=== PATIENT | male | born 1945 | race Hispanic/Latino ===

== ENCOUNTER 2019-03-08 16:56 | Inpatient (IN) | payer OTHER ==
[~2019-03-08] VITALS: Ht 180.3 cm; Wt 85.3 kg
[2019-03-08 17:45] LABS: EOSINOPHILS % (AUTO) 3.7 % (0.0-8.0); HEMATOCRIT 47.7 % (42-54); MEAN CORPUSCULAR HEMOGLOBIN 32.9 pg (27.0-33.0); MEAN CORPUSCULAR HGB CONC 34.5 g/dL (32.0-36.0); MEAN CORPUSCULAR VOLUME 95.5 fL (79-99); MONOCYTES % (AUTO) 6.8 % (3.0-13.0); NEUTROPHILS % (AUTO) 58.5 % (40.0-77.0); PLATELET COUNT (AUTO) 238 K/uL (130-400); RED CELL DISTRIBUTION WIDTH 13.2 % (11.0-15.5); WHITE BLOOD COUNT (AUTO) 7.9 K/uL (4.8-10.8)
[2019-03-08 17:57] LABS: CREATININE 1.1 mg/dL (0.5-1.5); POTASSIUM 4.5 mmol/L (3.5-5.1)
[2019-03-08] MEDS ORDERED: IOHEXOL-350 75 ML VIAL IV ONE (18:02)
[2019-03-08] MEDS ORDERED: IOHEXOL-350 50ML VIAL IV ONE ×2 (18:37→18:49)
[2019-03-08 19:44] LABS: APPEARANCE,URINE Clear (CLEAR); BILIRUBIN,URINE Negative (NEGATIVE); COLOR,URINE Yellow (YELLOW); GLUCOSE, URINE (UA) Negative (NEGATIVE); KETONES,URINE Trace mg/dL (NEGATIVE); LEUKOCYTE ESTERASE ,URINE Negative (NEGATIVE); NITRATE,URINE Negative (NEGATIVE); OCCULT BLOOD,URINE Negative (NEGATIVE); PROTEIN,URINE Negative (NEGATIVE)
[2019-03-08] MEDS ORDERED: ONDANSETRON HCL 4 MG/2 ML VIAL IV PRN (22:30)
[2019-03-08] MEDS ORDERED: HYDRALAZINE HCL 20 MG/ML VIAL IV PRN (22:30)
[2019-03-08] MEDS ORDERED: ACETAMINOPHEN 325 MG TAB PO PRN ×2 (22:30)
[2019-03-08 22:45] VITALS: BP 161/68
[2019-03-09] VITALS (15 sets, daily range): BP systolic 115–152; BP diastolic 53–80
[2019-03-09] MEDS: INSULIN HUMULIN R 100 UNIT/ML 3ML SQ SCH ×4 (07:30→20:56)
--- NOTE | 2019-03-09 08:30 | NUR ---
Dr Osullivan at bedside, requesting [facility] head [facility], pending to bring CD of CT heat.
[2019-03-09] MEDS: FAMOTIDINE/PF 20 MG/2 ML VIAL IV SCH ×2 (09:58→20:56)
--- NOTE | 2019-03-09 10:00 | NUR ---
Dr. Rascon at bedside, discussed plan with pt. to start on anticonvulsant therapy, high blood pressure control and possible Cerebral angio if recommended by dr. goodman.
--- NOTE | 2019-03-09 11:55 | NUR ---
Report given to BETTE Carcamo from ICU. Transferred pt, in no distress, aaox3.
[2019-03-09] MEDS: LEVETIRACETAM 500 MG TABLET PO SCH ×2 (14:26→20:56)
[2019-03-09] MEDS ORDERED: AEC81 PO (15:57)
[2019-03-09] MEDS ORDERED: LISI40TA4 PO (15:57)
[2019-03-09] MEDS ORDERED: CARB15DR OU (16:00)
--- NOTE | 2019-03-09 19:30 | NUR ---
Patient Refusal of CT with contrast in am Plan of care was discussed with patients and CT of head with and without contrast. Informed of need of CT and need of consent for use of contrast. Patient refused to get CT of head with contrast do to previous infiltration and arm swelling from previous CT. Discussed need of CT and informed patient that a new iv would be started and made sure IV was working properly before exam, patient continued to refuse.
--- NOTE | 2019-03-09 20:00 | NUR ---
Dr. Osullivan Paged Dr. Osullivan notified of patient refusal of CT with contrast and reason why patient refused. Orders received if unable to do CT with contrast not to take patient for CT without contrast and put on hold if unable to do both.
[2019-03-09] MEDS ORDERED: LEVETIRACETAM 500 MG TABLET PO SCH (21:00)
[2019-03-10] VITALS (12 sets, daily range): BP systolic 122–158; BP diastolic 63–105
[2019-03-10 04:05] LABS: HEMATOCRIT 44.1 % (42-54); HEMOGLOBIN A1C 7.2 % (4.0-6.0); MEAN CORPUSCULAR HEMOGLOBIN 32.6 pg (27.0-33.0); MEAN CORPUSCULAR HGB CONC 34.1 g/dL (32.0-36.0); MEAN CORPUSCULAR VOLUME 95.5 fL (79-99); NUCLEATED RED BLOOD CELLS 0.1 % (0.0-0.19); PLATELET COUNT (AUTO) 240 K/uL (130-400); RED BLOOD CELL COUNT(AUTO) 4.62 MIL/uL (4.50-6.20); RED CELL DISTRIBUTION WIDTH 13.1 % (11.0-15.5); WHITE BLOOD COUNT (AUTO) 9.2 K/uL (4.8-10.8)
[2019-03-10 04:19] LABS: POTASSIUM 4.3 mmol/L (3.5-5.1)
--- NOTE | 2019-03-10 04:30 | NUR ---
Educated patient on need of CT Patient was educated on need of CT, importance, and doctors orders. Patient continued to refuse.
[2019-03-10] MEDS: INSULIN HUMULIN R 100 UNIT/ML 3ML SQ SCH ×2 (06:34→11:30)
--- NOTE | 2019-03-10 07:50 | NUR ---
DR. GAUTHIER HERE AND ASSESSED PT AND UPDATE WAS GIVEN. PT HAD REFUSED TO REPEAT CT SCAN AND PT VERIFIED HIS REFUSAL TO DR. GAUTHIER AND ORDERS NOTED.
--- NOTE | 2019-03-10 08:45 | NUR ---
DR. ANGELO HERE AND ASSESSED PT AND WILL TRANSFER PT TO MED SURG FLOOR. PT WAS ADVISED OF NEURO DOCTOR BRIAN TO ASSESS PT AND DECIDE IF PATIENT CAN GO HOME.
[2019-03-10] MEDS ORDERED: AMLODIPINE BESYLATE 2.5 MG TAB PO SCH (09:00)
[2019-03-10] MEDS ORDERED: LINAGLIPTIN 5 MG TABLET PO SCH (09:00)
[2019-03-10] MEDS: LEVETIRACETAM 500 MG TABLET PO SCH (09:45)
[2019-03-10] MEDS: FAMOTIDINE/PF 20 MG/2 ML VIAL IV SCH (09:45)
--- NOTE | 2019-03-10 09:55 | NUR ---
REPORT GIVEN TO JESSICA AND PT TO BE TRANSFERRED TO ROOM 317 VIA W/C.
[2019-03-10] MEDS ORDERED: AMLO2.5T2 PO (14:34)
[2019-03-10] MEDS ORDERED: ATOR20TA65 PO (14:34)
[2019-03-10] MEDS ORDERED: LEVE500T8 PO (14:34)
[2019-03-10] MEDS ORDERED: LINA5TAB PO (14:34)
[2019-03-10] MEDS ORDERED: ATORVASTATIN CALCIUM 20 MG TABLET PO SCH (21:00)
== END 2019-03-10 15:59 | disposition home or self-care (01) | DRG 66 ==
LOC: EDH 16:56 → EDHIP 21:35 → 3AH 22:09 → 2CV 03-09 11:41 → 3CH 03-10 10:20
PROVIDERS: ADMIT Internal Medicine; ATTEND Internal Medicine
DX: I60.9 Nontraumatic subarachnoid hemorrhage, unspecified (principal); E11.51 Type 2 diabetes mellitus with diabetic peripheral angiopathy without gangrene; E78.2 Mixed hyperlipidemia; F17.210 Nicotine dependence, cigarettes, uncomplicated; I10 Essential (primary) hypertension; I25.10 Atherosclerotic heart disease of native coronary artery without angina pectoris; W18.30XA Fall on same level, unspecified, initial encounter; Z91.14 Patient's other noncompliance with medication regimen; Z86.73 Personal history of transient ischemic attack (TIA), and cerebral infarction without residual deficits; Z91.19 Patient's noncompliance with other medical treatment and regimen; Z91.81 History of falling; Z88.5 Allergy status to narcotic agent; Z88.8 Allergy status to other drugs, medicaments and biological substances; Y93.89 Activity, other specified; Y92.89 Other specified places as the place of occurrence of the external cause; Y99.8 Other external cause status
CPT/HCPCS: 36415; 70496; 80048; 80061; 81003; 82948; 83036; 84484; 85025; 85027; 93005; 99291; G0378; J1815; J3490; Q9967

== ENCOUNTER 2019-03-12 19:46 | Inpatient (IN) | payer OTHER | END 2019-03-18 21:25 | LOC: EDH 19:46 → 4BH 03-13 07:28 → EDHIP 21:33 | DX: I65.21 Occlusion and stenosis of right carotid artery (principal); R42 Dizziness and giddiness; W19.XXXA Unspecified fall, initial encounter; I10 Essential (primary) hypertension; E11.9 Type 2 diabetes mellitus without complications; E03.9 Hypothyroidism, unspecified; Z91.19 Patient's noncompliance with other medical treatment and regimen; I70.8 Atherosclerosis of other arteries ==